=== PATIENT | female | born 1990 | race African-American/Black ===

== ENCOUNTER 2022-03-15 09:48 | Emergency (ER) | payer OTHER ==
[~2022-03-15] VITALS: Ht 154.9 cm; Wt 75.0 kg
[~2022-03-15 09:48] MED LIST: TYLENOL325 MG OR
[2022-03-15 09:58] VITALS: BP 129/84
[2022-03-15 10:01] VITALS: BP 111/72
[2022-03-15 10:15] VITALS: BP 116/71
[2022-03-15 11:17] LABS: ALKALINE PHOSPHATASE 73 u/l (38-126); ANION GAP 16 (6-22 (CALC)); BILIRUBIN, TOTAL 0.3 mg/dL (0.0-1.4); BUN 7 mg/dL (7-17); BUN/CREATININE RATIO 12 (12-20 (CALC)); CARBON DIOXIDE 29 mmol/l (22-30); CHLORIDE 101 mmol/l (95-108); CREATININE 0.6 mg/dL (0.5-1.0); GFR FOR AFR.AMER. > 60 ML/MIN (>=60 (CALC)); GFR OTHER RACES > 60 ML/MIN (>=60 (CALC)); POTASSIUM 4.1 mmol/l (3.5-5.1); SGOT/AST 25 u/l (14-36); SODIUM 142 mmol/l (137-146); TOTAL PROTEIN 8.8 g/dL (6.3-8.2)
[2022-03-15 11:21] LABS: EOS% 2.4 % (0-8); HEMATOCRIT 36.3 % (37.0-47.0); LYMPH% 38.2 % (15-41); MEAN CELL VOLUME 87.7 fL CALC (80.0-100.0); MEAN CORPUSCULAR HGB CONC 33.1 g/dL CAL (32.0-36.0); MONO% 7.8 % (2-13); NEUT# 2.53 thou/uL (2.00-7.15); NEUT% 50.6 % (42-76); RED BLOOD COUNT 4.14 mill/uL (4.20-5.60); RED CELL DISTRI WIDTH 12.4 % (11.5-15.5)
[2022-03-15 11:26] VITALS: BP 110/64
[2022-03-15] MEDS ORDERED: MECLIZINE 2525 MG PO (11:34)
[2022-03-15 11:54] VITALS: BP 110/64
== END 2022-03-15 12:01 | disposition home or self-care (01) | DRG 149 ==
LOC: ED 09:48
PROVIDERS: Family Medicine
DX: R42 Dizziness and giddiness (principal)